=== PATIENT | female | born 1945 | race Caucasian/White ===

== ENCOUNTER 2019-09-16 13:03 | Emergency (ER) | payer MEDICARE, OTHER, SELFPAY ==
--- NOTE | ~2019-09-16 | XR_ITS ---
XR lumbar spine 2-3V DATE: 09/16/2019 13:55 INDICATION: Fall. Back pain. TECHNIQUE: AP, crosstable lateral and crosstable lateral lumbosacral views COMPARISON: None FINDINGS: There is mild levoscoliosis. No fracture or bone destruction of the lumbar spine is evident. Included lower thoracic and lumbar pe dicles are intact. There is moderate degenerative disc disease at L3-4, L4-5. The sacroiliac joints are intact. Surgical clips overlie the right upper quadrant, consistent with cholecystectomy. There is a prominen t amount of fecal material in the colon. IMPRESSION: Mild levoscoliosis Moderate degenerative disc disease at primarily at L3-4 and L4-5 Prominent amount of fecal material in the colon Status post cholecystectomy Reviewed, dictated and finalized at location A.
--- NOTE | ~2019-09-16 | CT_ITS ---
EXAMINATION: CT cervical spine wo con DATE: 09/16/2019 13:39 INDICATION: Neck pain. Head injury. TECHNIQUE: Computed tomography (CT) of the cervical spine was performed without intravenous contrast. Automated exposure control and iterative reconstruction technique were employed. The dose-length pro duct was 175.32 mGy-cm. COMPARISON: None FINDINGS: There is mild scarring at the lung apices. There is 9 degrees dextrocurvature of cervical s pine. There is kyphosis of cervical spine. Vertebral body heights are normal. There is mildly decreas ed disc height at C3-C4 and moderately decreased disc height from C4-C5 through C6-C7. The following disc levels are specifically discussed: C2-C3: There is mild bilateral uncovertebral joint osteoarthritis. There is moderate right and severe left facet joint osteoarthritis. There is mild left neural foraminal stenosis. There is no central c anal stenosis. C3-C4: There is moderate bilateral uncovertebral joint osteoarthritis. There is moderate and severe l eft facet joint osteoarthritis. There is mild bilateral neural foraminal stenosis. There is mild cent ral canal stenosis. C4-C5: There is severe bilateral uncovertebral joint osteoarthritis. There is mild bilateral facet juanito int osteoarthritis. There is mild bilateral neural foraminal stenosis. There is mild central canal st enosis. C5-C6: There is mild right and severe left uncovertebral joint osteoarthritis. There is mild left fac et joint osteoarthritis. There is mild bilateral neural foraminal stenosis. There is mild central can al stenosis. C6-C7: There is mild right and severe left uncovertebral joint osteoarthritis. There is mild bilatera l facet joint osteoarthritis. There is mild left neural foraminal stenosis. There is mild central can al stenosis. C7-T1: There is mild bilateral uncovertebral joint osteoarthritis. There is mild bilateral facet join t osteoarthritis. There is mild left neural foraminal stenosis. There is no central canal stenosis. IMPRESSION: 1. No fracture. 2. Moderate cervical spondylosis. Reviewed, dictated and finalized at location A.
--- NOTE | ~2019-09-16 | XR_ITS ---
EXAMINATION: XR elbow RT min 3V DATE: 09/16/2019 13:55 INDICATION: Right elbow pain. Fall. TECHNIQUE: 4 views of right elbow were obtained. COMPARISON: None. FINDINGS: Bone alignment is normal. No fracture. Joint spaces are well maintained. There is no elbow joint effusion. There is soft tissue swelling overlying the olecranon. IMPRESSION: 1. No fracture. Reviewed, dictated and finalized at location A. IMPRESSION: 1. No fracture.
--- NOTE | ~2019-09-16 | CT_ITS ---
EXAMINATION: CT brain wo con DATE: 09/16/2019 13:39 INDICATION: Head injury. TECHNIQUE: Computed tomography (CT) of the head was performed without intravenous contrast. The mA wa s adjusted according to patient size. Iterative reconstruction technique was employed. The dose-lengt h product was 605.33 mGy-cm. COMPARISON: None FINDINGS: There is no intracranial hemorrhage, acute infarction, or abnormal intracranial mass lesion . The ventricles are normal in size. The paranasal sinuses are clear. There are likely changes of ocu lar lens replacement surgeries. The mastoid air cells are normal. There is right parietal soft tissue swelling. IMPRESSION: 1. Normal brain. Reviewed, dictated and finalized at location A. IMPRESSION: 1. Normal brain.
--- NOTE | ~2019-09-16 | XR_ITS ---
EXAMINATION: XR hip RT 2V w AP pelvis DATE: 09/16/2019 13:55 INDICATION: Right hip pain. Fall. TECHNIQUE: An anteroposterior view of the pelvis and 2 views of right hip were obtained. COMPARISON: Right hip radiographs 05/20/2015 FINDINGS: Bone alignment is normal. No fracture. There is mild osteoarthritis of the hips. There is m ild lumbar spondylosis. IMPRESSION: 1. Mild osteoarthritis of the hips. Reviewed, dictated and finalized at location A.
[2019-09-16 13:15] VITALS: BP 158/92; PULSE 79; RESP 15; TEMP 36.7; O2SAT 97
--- NOTE | 2019-09-16 13:23 | ED.FALL ---
HPI - Fall General Chief Complaint: Fall Stated Complaint: Fall History of Present Illness HPI Narrative: Patient presents via EMS after a fall at her sister's house. She was carrying a microwave out of the house and fell off the porch onto an asphalt driveway. She hit on her right elbow and right head. She had no loss of consciousness. She has pain in her right hip 6 out of 10. She has pain in her right head 60 7 out of 10. She has posterior neck pain 3 out of 10. She has pain in her right elbow 5 out of 10. She has a bandage on the right elbow. She is not on a blood thinner, not even aspirin a day. She does not feel confused. She only fell down 1 of the 3 steps off the porch. She has not been sick in the last couple weeks. She does not smoke drink or do drugs. She is retired. Her last tetanus shot was 2011. complaint: fall Onset (ago): minute(s) Fall from: standing Fall witnessed: yes, by family Place fall occurred: other (Sister's house) Loss of consciousness: none Symptoms prior to fall: none Context: tripped/slipped Location of injury: head, back and other (Right hip) Location of injury - extremities: Right: elbow Severity: moderate Related Data Home Medications Medication Instructions Recorded Confirmed desipramine 100 mg tablet See Rx Instructions PO DAILY 04/17/19 04/17/19 lamotrigine 100 mg tablet 50 mg PO BID tablet 04/17/19 04/17/19 lovastatin 40 mg tablet 40 mg PO DAILY 04/17/19 04/17/19 zolpidem 10 mg tablet 10 mg PO PRN tablet 04/17/19 04/17/19 Allergies Allergy/AdvReac Type Severity Reaction Status Date / Time bupropion [Wellbutrin] Allergy Intermediate Unknown Verified 09/16/19 13:23 clonazepam Allergy Intermediate Unknown Verified 09/16/19 13:23 lithium Allergy Intermediate Unknown Verified 09/16/19 13:23 asenapine AdvReac Severe DIDN'T Verified 09/16/19 13:23 WORK, SEVERE ANXIETY levofloxacin AdvReac Severe ABDOMINAL Verified 09/16/19 13:23 CRAMPING Review of Systems Review of Systems: Narrative: CONSTITUTIONAL: Denies fever, chills, or sweats. EYES: Denies visual changes, redness, or discharge. ENT: Denies rhinorrhea, congestion, sore throat, or otalgia. CARDIOVASCULAR: Denies chest pain, palpitations, or edema. RESPIRATORY: Denies cough or dyspnea. GASTROINTESTINAL: Denies abdominal pain, nausea, vomiting, or diarrhea. GENITOURINARY: Denies dysuria or hematuria. SKIN: Denies rash or itching. MUSCULOSKELETAL: She has right hip pain right elbow pain right head pain. NEUROLOGIC: Denies numbness, or weakness. PSYCHIATRIC: Denies anxiety or depression. [facility] Past Medical History Medical History HLD (hyperlipidemia) Osteoarthritis Osteoporosis Stress incontinence, female Surgical History Surgical History History of cataract surgery Hx laparoscopic cholecystectomy Family History Family History Father Hypertension Mother Cerebrovascular accident Social History Social History Smoking status: Never smoker Alcohol intake: never Substance use: never Substance use type: does not use Gender identity (if verbalized by the patient): Female Spiritual care concerns: No Agree to blood products: No Exam Narrative: Exam Narrative: GENERAL: Well-appearing, well-nourished, and in no acute distress. HEAD: Normocephalic, swelling in the right parietal area. EYES: PERRLA and EOMI. cataracts shining in the light. ENT: Nares clear, no rhinorrhea or epistaxis. Mucous membranes moist. NECK: Supple. CHEST: Clear to auscultation. No respiratory distress. HEART: Regular rate and rhythm. No murmur heard. Normal peripheral pulses. ABDOMEN: Soft, nontender, nondistended, normal active bowel sounds. EXTREMITIES: Normal range of motion, swelling in
[2019-09-16] MEDS: MORPHINE SULFATE 2 MG/ML INJ IV PUSH (13:27)
--- NOTE | 2019-09-16 13:30 | PC.NURSE ---
Pt taken to CTscan
[2019-09-16 14:59] VITALS: BP 173/101; PULSE 75; RESP 19; O2SAT 99
--- NOTE | 2019-09-16 15:01 | PC.NURSE ---
Pt requested pudding before her discharge. Pt asked about wound care for her elbow. Informed pt to put antibiotic cream and a bandage on wound. This was also placed in discharge instructions
== END 2019-09-16 15:03 | disposition home or self-care (01) ==
PROVIDERS: Emergency Provider Emergency Medicine
DX: S09.90XA Unspecified injury of head, initial encounter (principal); S51.001A Unspecified open wound of right elbow, initial encounter; M25.551 Pain in right hip; M47.812 Spondylosis without myelopathy or radiculopathy, cervical region; E78.5 Hyperlipidemia, unspecified; M19.90 Unspecified osteoarthritis, unspecified site; M81.0 Age-related osteoporosis without current pathological fracture; Z98.49 Cataract extraction status, unspecified eye; M16.0 Bilateral primary osteoarthritis of hip; W10.9XXA Fall (on) (from) unspecified stairs and steps, initial encounter
CPT/HCPCS: 70450; 72100; 72125; 73080; 73502; 96374; 99284; J2270

== ENCOUNTER 2019-09-21 12:54 | Outpatient (CLI) | payer MEDICARE, SELFPAY ==
[2019-09-21 13:05] LABS: Hematocrit 30.8 % (35.0-42.0); Hemoglobin 11.1 g/dL (11.7-13.8); Mean Corpuscular Hemoglobin 34.5 pg (27.0-31.0); Mean Corpuscular Volume 95.7 fL (78.0-102.0); Mean Platelet Volume 9.5 fl (9.2-11.8); Platelet Count Result 202 K/mm3 (150-420); Red Blood Count 3.22 M/mm3 (4.20-5.40); Red Cell Distribution Width 11.5 % (11.6-14.4); White Blood Count 5.1 K/mm3 (4.8-10.8)
[2019-09-21 13:52] LABS: Alanine Aminotransferase 21 U/L (14-59); Albumin Level 3.8 g/dL (3.4-5.0); Alkaline Phosphatase 71 U/L (46-116); Anion Gap 10.1 mmol/L (7-16); Aspartate Amino Transferase 21 U/L (15-37); Bilirubin,Total 0.3 mg/dL (0.00-1.00); Blood Urea Nitrogen 21 mg/dL (7-18); Calcium 9.2 mg/dL (8.5-10.1); Carbon Dioxide 30 mmol/L (21-32); Chloride 92 mmol/L (98-108); Cholesterol 172 mg/dL (0-200); Estimated Glomerular Filt Rate > 60; Glucose 89 mg/dL (70-99); HDL Direct 49 mg/dL (40-60); LDL Cholesterol Calculated 107 mg/dL (<130); Osmolality Calculated 268 mOsm/kg (285-295); Potassium 4.1 mmol/L (3.5-5.1); Sodium 128 mmol/L (136-145); Total Protein 6.5 g/dL (6.4-8.2); Triglycerides 81 mg/dL (0-150)
== END 2019-09-21 12:55 | disposition home or self-care (01) ==
LOC: CHSLAB 12:58
PROVIDERS: PCP Family Medicine; Visit Provider Family Medicine
DX: E78.5 Hyperlipidemia, unspecified (principal)
CPT/HCPCS: 36415; 80053; 80061; 85027

== ENCOUNTER 2019-09-23 14:11 | Outpatient (CLI) | payer MEDICARE, SELFPAY ==
[2019-09-23 14:36] LABS: Creatinine Urine 31.16 mg/dL (40-278); Sodium Urine Random 10 mmol/L (20-110)
[2019-09-23 14:59] LABS: BNP 123 pg/mL (0-100)
[2019-09-23 15:58] LABS: Anion Gap 10.1 mmol/L (7-16); Blood Urea Nitrogen 18 mg/dL (7-18); Calcium 9.2 mg/dL (8.5-10.1); Carbon Dioxide 30 mmol/L (21-32); Chloride 92 mmol/L (98-108); Estimated Glomerular Filt Rate 60; Ferritin 90 ng/mL (8-252); Glucose 109 mg/dL (70-99); Iron 54 ug/dL (50-170); Osmolality Calculated 268 mOsm/kg (285-295); Percent Iron Saturation 30 % (12-57); Potassium 4.1 mmol/L (3.5-5.1); Sodium 128 mmol/L (136-145)
[2019-09-26 05:51] LABS: Osmolality, Urine 243 mOsm/kg (50-1200)
== END 2019-09-23 14:12 | disposition home or self-care (01) ==
LOC: CHSLAB 14:15
PROVIDERS: PCP Family Medicine; Visit Provider Family Medicine
DX: M79.9 Soft tissue disorder, unspecified (principal); E87.1 Hypo-osmolality and hyponatremia; E78.5 Hyperlipidemia, unspecified; D64.9 Anemia, unspecified; R31.9 Hematuria, unspecified; M79.89 Other specified soft tissue disorders
CPT/HCPCS: 36415; 80048; 82570; 82728; 83540; 83550; 83880; 83935; 84300

== ENCOUNTER 2019-09-30 12:17 | Outpatient (CLI) | payer MEDICARE, OTHER, SELFPAY ==
--- NOTE | 2019-09-30 12:35 | PC.NURSE ---
Pt to room 201 amb per self. Up in chair without questions or complaints. Oriented to room. Call conteh in reach. Reminded with needs.
[2019-09-30] MEDS: ZOLEDRONIC ACID 5 MG/100 ML 100 ML 400 MG IVPB (13:14)
--- NOTE | 2019-09-30 13:45 | PC.NURSE ---
Pt discharged to home amb per self without questions or concerns.
== END 2019-09-30 12:18 | disposition home or self-care (01) ==
LOC: CHSTREATRM 12:19
PROVIDERS: PCP Family Medicine; Visit Provider Family Medicine
DX: M81.0 Age-related osteoporosis without current pathological fracture (principal)
CPT/HCPCS: 96365; J3489

== ENCOUNTER 2019-10-19 10:19 | Outpatient (CLI) | payer MEDICARE, OTHER, SELFPAY ==
--- NOTE | ~2019-10-19 | MM_ITS ---
EXAMINATION: MM screening flex BI w raheem HISTORY: Screening mammogram TECHNIQUE: Craniocaudal and mediolateral oblique 3-D tomosynthesis images were obtained and synthetic 2-D images were generated. CAD analysis was submitted and interpreted. COMPARISON: 08/25/2018, 08/19/2017, 08/02/2016 bilateral digital screening mammogram examinations BREAST PARENCHYMAL COMPOSITION: There are scattered areas of fibroglandular density. FINDINGS: Bilateral occasional benign calcifications. There is no evidence of suspicious mass, calcif ication, or architectural distortion to suggest malignancy in either breast. There has been no suspic ious interval change. IMPRESSION: 1. No mammographic evidence of malignancy. 2. Recommend routine screening mammography in one year. BI-RADS Category 1: Negative Reviewed, dictated and finalized at location B.
== END 2019-10-19 10:20 | disposition home or self-care (01) ==
LOC: CHSIMG 10:22
PROVIDERS: PCP Family Medicine; Visit Provider Family Medicine
DX: Z12.31 Encounter for screening mammogram for malignant neoplasm of breast (principal)
CPT/HCPCS: 77063; 77067

== ENCOUNTER 2019-11-18 12:40 | Outpatient (CLI) | payer MEDICARE, SELFPAY ==
[2019-11-18 13:40] LABS: Anion Gap 8.3 mmol/L (7-16); Blood Urea Nitrogen 22 mg/dL (7-18); Carbon Dioxide 31 mmol/L (21-32); Chloride 102 mmol/L (98-108); Estimated Glomerular Filt Rate 42; Glucose 84 mg/dL (70-99); Osmolality Calculated 286 mOsm/kg (285-295); Potassium 4.3 mmol/L (3.5-5.1); Sodium 137 mmol/L (136-145)
[2019-11-18 15:54] LABS: Add Urine Microscopic? YES; Appearance Urine Clear (Clear); Bilirubin Urine Negative (Negative); Blood Urine Negative (Negative); Color Urine Yellow (Yellow); Glucose Urine UA Negative (Negative); Ketones Urine Negative (Negative); Leukocyte Esterase Ur 2+ LEU/UL (Negative); Nitrate Urine Positive (Negative); Protein Urine Negative (Negative); Specific Grav Ur 1.015 (1.010-1.020); Urobilinogen Urine 0.2 mg/dL (0.2-1.0)
[2019-11-18 15:57] LABS: RBC Urine None seen /hpf (0-2); Squamous Epithelial Cell Urine Few /hpf (Few); WBC Clumps Urine Present /hpf; WBC Urine 21-30 /hpf (0-3)
[2019-11-18 15:58] LABS: Bacteria Urine 2+ /hpf
== END 2019-11-18 12:41 | disposition home or self-care (01) ==
LOC: CHSLAB 12:42
PROVIDERS: PCP Family Medicine; Visit Provider Family Medicine
DX: R30.0 Dysuria (principal); E87.1 Hypo-osmolality and hyponatremia
CPT/HCPCS: 36415; 80048; 81001; 87077; 87086; 87088; 87186

== ENCOUNTER 2019-12-22 08:12 | Outpatient (CLI) | payer MEDICARE, SELFPAY ==
[2019-12-22 08:35] LABS: Hematocrit 34.1 % (35.0-42.0); Hemoglobin 11.3 g/dL (11.7-13.8); Mean Corpuscular HGB Conc 33.1 g/dL (32.0-36.0); Mean Corpuscular Hemoglobin 33.9 pg (27.0-31.0); Mean Corpuscular Volume 102.4 fL (78.0-102.0); Mean Platelet Volume 10.2 fl (9.2-11.8); Platelet Count Result 214 K/mm3 (150-420); Red Blood Count 3.33 M/mm3 (4.20-5.40); Red Cell Distribution Width 11.5 % (11.6-14.4); White Blood Count 4.9 K/mm3 (4.8-10.8)
[2019-12-22 10:06] LABS: Alanine Aminotransferase 17 U/L (14-59); Albumin Level 3.8 g/dL (3.4-5.0); Alkaline Phosphatase 69 U/L (46-116); Anion Gap 7 mmol/L (8-16); Aspartate Amino Transferase 17 U/L (15-37); Bilirubin,Total 0.2 mg/dL (0.00-1.00); Blood Urea Nitrogen 24 mg/dL (7-18); Calcium 9.2 mg/dL (8.5-10.1); Carbon Dioxide 30 mmol/L (21-32); Chloride 104 mmol/L (98-108); Estimated Glomerular Filt Rate 38; Glucose 82 mg/dL (70-99); Osmolality Calculated 295 mOsm/kg (285-295); Potassium 3.9 mmol/L (3.5-5.1); Sodium 141 mmol/L (136-145); Total Protein 6.5 g/dL (6.4-8.2)
[2019-12-22 15:17] LABS: MALB Creatinine Ratio 19.2 mg/g (0-30); Microalbumin Urine Random < 13.0 mg/L
== END 2019-12-22 08:13 | disposition home or self-care (01) ==
PROVIDERS: PCP Family Medicine; Visit Provider Family Medicine
DX: E78.5 Hyperlipidemia, unspecified (principal); M19.90 Unspecified osteoarthritis, unspecified site; M81.0 Age-related osteoporosis without current pathological fracture
CPT/HCPCS: 36415; 80053; 82043; 85027

== ENCOUNTER 2019-12-23 12:37 | Outpatient (CLI) | payer MEDICARE, SELFPAY ==
[2019-12-24 13:55] LABS: Add Urine Microscopic? NO; Appearance Urine Clear (Clear); Bilirubin Urine Negative (Negative); Blood Urine Negative (Negative); Color Urine Yellow (Yellow); Glucose Urine UA Negative (Negative); Ketones Urine Negative (Negative); Leukocyte Esterase Ur Negative LEU/UL (Negative); Nitrate Urine Negative (Negative); Protein Urine Negative (Negative); Specific Grav Ur <= 1.005 (1.010-1.020); Urobilinogen Urine 0.2 mg/dL (0.2-1.0); pH Urine 6.5 (5.0-8.0)
== END 2019-12-23 12:38 | disposition home or self-care (01) ==
PROVIDERS: PCP Family Medicine; Visit Provider Family Medicine
DX: N39.0 Urinary tract infection, site not specified (principal)
CPT/HCPCS: 81003